=== PATIENT | female | born 1990 | race Caucasian/White ===

== ENCOUNTER 2022-03-28 18:09 | Emergency (ER) | payer OTHER ==
[~2022-03-28] VITALS: Ht 172.7 cm; Wt 99.8 kg
[2022-03-28 18:10] VITALS: BP_SYST 138
--- NOTE | 2022-03-28 20:09 | NUR ---
[id number] ER examined patient at this time as documented by him
[2022-03-28 20:10] VITALS: BP_SYST 135
--- NOTE | 2022-03-28 20:10 | NUR ---
Patient given written and verbal discharge instructions by Dr Milian and verbalizes understanding. ER MD Dr Milian discussed with patient the results and treatment provided. Patient in stable condition. No Rx given. Patient educated on pain management and to follow up with PMD. Opportunity for questions provided and answered by Dr Milian.
== END 2022-03-28 20:10 | disposition home or self-care (01) ==
LOC: SED 18:09
DX: O26.891 Other specified pregnancy related conditions, first trimester (principal); Z3A.01 Less than 8 weeks gestation of pregnancy; Z79.899 Other long term (current) drug therapy
CPT/HCPCS: 76801; 76817; 99284